=== PATIENT | male | born 1945 | race Asian ===

== ENCOUNTER 2023-11-05 12:23 | Inpatient (IN) | payer MEDICARE ==
[~2023-11-05] VITALS: Ht 175.3 cm; Wt 74.1 kg
[2023-11-05] MEDS ORDERED: IV NS 0.9% 250 ML IV ONE (12:40)
[2023-11-05] MEDS ORDERED: IOHEXOL-350 100 ML VIAL IV ONE (12:40)
[2023-11-05 12:47] LABS: BASOPHILS % (AUTO) 0.7 % (0.0-2.0); EOSINOPHILS % (AUTO) 0.2 % (0.0-6.0); HEMATOCRIT 33 % (39-51); HEMOGLOBIN 10.9 g/dL (13.5-17.5); LYMPHOCYTES # (AUTO) 0.5 K/uL (0.8-4.8); LYMPHOCYTES % (AUTO) 7.5 % (20.0-44.0); MEAN CORPUSCULAR HEMOGLOBIN 29 PG (26.0-33.0); MEAN CORPUSCULAR HGB CONC 34 g/dl (31.0-36.0); MEAN CORPUSCULAR VOLUME 86 fL (80-96); MONOCYTES # (AUTO) 0.9 K/uL (0.1-1.30); MONOCYTES % (AUTO) 13.5 % (2.0-12.0); NEUTROPHILS # (AUTO) 5.5 K/uL (1.8-8.9); NEUTROPHILS % (AUTO) 78.1 % (43.0-81.0); PLATELET COUNT (AUTO) 166 K/uL (150-450); RED BLOOD CELL COUNT(AUTO) 3.78 MIL/uL (4.5-6.0); RED CELL DISTRIBUTION WIDTH 14.4 % (11.5-15.0)
[2023-11-05 12:53] LABS: CARBON DIOXIDE 22 mmol/L (21-32); CHLORIDE 105 mmol/L (98-107); CREATININE 1.1 mg/dL (0.6-1.3); GLUCOSE 126 mg/dL (74-106); POTASSIUM 3.9 mmol/L (3.5-5.1); SODIUM SERUM 137 mmol/L (136-145); UREA NITROGEN, BLOOD 17 mg/dL (7-18)
[2023-11-05 12:57] LABS: INR 1.14 (0.91-1.10); PARTIAL THROMBOPLASTIN TIME 33.9 SEC (24.3-34.3)
[2023-11-05] MEDS ORDERED: LEVO50TA8 PO (13:51)
[2023-11-05] MEDS ORDERED: AMLO2.5T4 PO (13:51)
[2023-11-05] MEDS ORDERED: CARV6.252 PO (13:51)
[2023-11-05] MEDS ORDERED: RIVA10TA PO (13:51)
[2023-11-05] MEDS ORDERED: AMIO200T5 PO (13:51)
[2023-11-05] MEDS ORDERED: ATOR40TA PO (13:51)
[2023-11-05] MEDS ORDERED: Z GUARD REMEDY 4 OZ OINT TP PRN (18:30)
[2023-11-05] MEDS ORDERED: MAG HYDROX/AL HYDROX/SIMETH 30 ML UDC PO PRN (18:30)
[2023-11-05] MEDS ORDERED: ZOLPIDEM TARTRATE 5 MG TABLET PO PRN (18:30)
[2023-11-05] MEDS ORDERED: ACETAMINOPHEN 325 MG TABLET PO PRN (18:30)
[2023-11-05] MEDS ORDERED: ONDANSETRON HCL/PF 4 MG/2 ML VIAL IVP PRN (18:30)
[2023-11-05] MEDS ORDERED: MAGNESIUM HYDROXIDE 30 ML UDC PO PRN (18:30)
[2023-11-05 20:00] VITALS: BP 143/72; TEMP 98.3; O2SAT 95
[2023-11-05] MEDS: BLOOD SUGAR DIAGNOSTIC 1 EACH STRIP IN SCH (21:15)
[2023-11-05] MEDS ORDERED: SIMVASTATIN 20 MG TABLET PO SCH (22:00)
[2023-11-06] VITALS: BP 135/82; TEMP 98.5; O2SAT 95
[2023-11-06] MEDS ORDERED: BLOOD SUGAR DIAGNOSTIC 1 EACH STRIP IN SCH
[2023-11-06 04:00] VITALS: BP 135/65; TEMP 97.8; O2SAT 97
[2023-11-06 07:12] LABS: BASOPHILS % (AUTO) 0.5 % (0.0-2.0); EOSINOPHILS % (AUTO) 0.3 % (0.0-6.0); HEMATOCRIT 35 % (39-51); HEMOGLOBIN 11.7 g/dL (13.5-17.5); LYMPHOCYTES # (AUTO) 0.6 K/uL (0.8-4.8); MEAN CORPUSCULAR HEMOGLOBIN 29 PG (26.0-33.0); MEAN CORPUSCULAR HGB CONC 34 g/dl (31.0-36.0); MEAN CORPUSCULAR VOLUME 85 fL (80-96); MONOCYTES # (AUTO) 0.8 K/uL (0.1-1.30); MONOCYTES % (AUTO) 15.8 % (2.0-12.0); NEUTROPHILS # (AUTO) 3.5 K/uL (1.8-8.9); NEUTROPHILS % (AUTO) 71.4 % (43.0-81.0); PLATELET COUNT (AUTO) 180 K/uL (150-450); RED BLOOD CELL COUNT(AUTO) 4.11 MIL/uL (4.5-6.0); RED CELL DISTRIBUTION WIDTH 13.9 % (11.5-15.0); WHITE BLOOD COUNT (AUTO) 4.9 K/uL (4.3-11.0)
[2023-11-06 07:53] LABS: CALCIUM, SERUM 8.1 mg/dL (8.5-10.1); CARBON DIOXIDE 24 mmol/L (21-32); CHLORIDE 107 mmol/L (98-107); CREATININE 0.9 mg/dL (0.6-1.3); GLUCOSE 107 mg/dL (74-106); MAGNESIUM 2.3 mg/dL (1.8-2.4); PHOSPHORUS 2.9 mg/dL (2.5-4.9); POTASSIUM 3.5 mmol/L (3.5-5.1); SODIUM SERUM 140 mmol/L (136-145); UREA NITROGEN, BLOOD 12 mg/dL (7-18)
[2023-11-06 08:00] VITALS: BP 138/75; TEMP 98.3; O2SAT 95
[2023-11-06 08:00] LABS: CHOLESTEROL 139 mg/dL (<200); HDL CHOLESTEROL 87 mg/dL (40-60); LDL 44 mg/dL (0-99); THYROID STIMULATING HORMONE 2.162 uIU/mL (0.358-3.74); TRIGLYCERIDES 43 mg/dL (30-150)
[2023-11-06] MEDS: AMIODARONE HCL 200 MG TABLET PO SCH (10:02)
[2023-11-06] MEDS: AMLODIPINE BESYLATE 2.5 MG TABLET PO SCH (10:02)
[2023-11-06] MEDS: ATORVASTATIN 40 MG TABLET PO SCH (10:02)
[2023-11-06] MEDS: ASPIRIN 81 MG TAB.CHEW PO SCH (10:02)
[2023-11-06] MEDS: PANTOPRAZOLE 40 MG VIAL IV SCH (10:03)
[2023-11-06] MEDS: CARVEDILOL 6.25 MG TABLET PO SCH (10:03)
[2023-11-06] MEDS: LEVOTHYROXINE SODIUM 50 MCG TABLET PO SCH (10:03)
[2023-11-06] MEDS: RIVAROXABAN 10 MG TABLET PO SCH (10:04)
[2023-11-06 12:00] VITALS: BP 119/88; TEMP 99.3; O2SAT 93
[2023-11-06 16:00] VITALS: BP 128/68; TEMP 97.9; O2SAT 95
[2023-11-06 17:37] VITALS: BP 128/68
== END 2023-11-06 20:30 | disposition home or self-care (01) | DRG 69 ==
LOC: ER 12:25 → TELE1 18:19 → MEDSG1 11-06 16:24
PROVIDERS: ADMIT Nurse Practitioner Acute Care; ATTEND Nurse Practitioner Acute Care
DX: G45.9 Transient cerebral ischemic attack, unspecified (principal); I10 Essential (primary) hypertension; I48.91 Unspecified atrial fibrillation; R29.700 NIHSS score 0; E78.00 Pure hypercholesterolemia, unspecified; E03.9 Hypothyroidism, unspecified; Z79.01 Long term (current) use of anticoagulants; D64.9 Anemia, unspecified; M51.37 Other intervertebral disc degeneration, lumbosacral region; Z79.890 Hormone replacement therapy; Z79.899 Other long term (current) drug therapy; Z86.79 Personal history of other diseases of the circulatory system
CPT/HCPCS: 36415; 70450-TC; 70496-TC; 70498-TC; 72131-TC; 80048-TC; 80061-TC; 82962-TC; 83735-TC; 84100-TC; 84443-TC; 84484-TC; 85025-TC; 85730-TC; 92526; 92611-TC; 93307-TC; 97112-TC; 97116-TC; 97530-TC; C9113; G0378; J7050; Q9967